=== PATIENT | female | born 1995 | race Two or more races ===

== ENCOUNTER 2021-04-09 13:37 | Emergency (ER) | payer MEDICAID ==
--- NOTE | 2021-04-09 14:44 | EDM.PDOC ---
ED HPI GENERAL MEDICAL PROBLEM - General Chief Complaint: Respiratory Problem Stated Complaint: FEVER,CONGESTED. Time Seen by Provider: 04/09/21 14:36 - History of Present Illness INITIAL COMMENTS - FREE TEXT/NARRATIVE: History of present illness: [] 26-year-old female presents with sinus congestion starting 06 April 2021. She does not have fever chills cough or wheezing. She does have a history of asthma. The patient has congestion and full sinuses with fullness in the front of her frontal and maxillary areas. She has chronic recurring sinus symptoms but markedly worse for 4 days. Review of systems: As per history of present illness and below otherwise all systems reviewed and negative. Past medical history: As per history of present illness and as reviewed below otherwise noncontributory. Surgical history: As per history of present illness and as reviewed below otherwise noncontributory. Social history: No reported history of drug or alcohol abuse. Family history: As per history of present illness and as reviewed below otherwise noncontributory. Physical exam: Constitutional - well developed, well-nourished and in no acute distress HEENT -somewhat tender with fullness in the frontal and maxillary areas. Normocephalic, no evidence of trauma - external nose and mouth normal - no mass in neck and no JVD - mucosae moist EYES - full EOM, PERRL, no icterus - no evidence of inflammation, injection, or drainage Respiratory - no respiratory distress, equal bilateral expansion, lungs clear to auscultation and no abnormal lung sounds Cardiovascular - Regular Rhythm with S1 and S2 appreciated and no murmur, gallop or rub. GI - abdomen soft without distension or organomegaly - no guard or rebound Musculoskeletal no gross deformity of long bones or joints - no tenderness, swelling or edema Neurologic - Alert and oriented times four - CN II-XII grossly intact - motor sensory and coordination symmetrically normal Psychiatric - appropriate mood and affect with normal thought content Hematologic - No petechiae or purpura - mucosa appropriate color and sclera not pale - normal nail bed color and refill Integument - no rash or evidence of trauma - normal turgor Diagnostics: [] Therapeutics: [] Impression: [] Plan: [] Definitive disposition and diagnosis as appropriate pending reevaluation and review of above. - Related Data Allergies Allergy/AdvReac Type Severity Reaction Status Date / Time No Known Allergies Allergy Verified 04/09/21 14:08 Home Meds: Home Meds Amoxicillin/Clavulanate K [Augmentin 875-125 MG] 1 tab PO BID #20 tablet 04/09/21 [Rx] Past Medical History HEENT History: Reports: None Cardiovascular History: Reports: None Respiratory History: Reports: Asthma Gastrointestinal History: Reports: None Neurological History: Reports: None Psychiatric History: Reports: None Endocrine/Metabolic History: Reports: None Hematologic History: Reports: None Oncologic (Cancer) History: Reports: None Dermatologic History: Reports: None - Past Surgical History HEENT Surgical History: Reports: None Respiratory Surgical History: Reports: None Social & Family History - Family History Family Medical History: No Pertinent Family History - Caffeine Use Caffeine Use: Reports: Coffee - Recreational Drug Use Recreational Drug Use: No ED ROS GENERAL - Review of Systems Review Of Systems: Comprehensive ROS is negative, except as noted in HPI. ED EXAM, GENERAL - Physical Exam Exam: See Below Free Text/Narrative:: My physical exam is in the HPI Course - Vital Signs Last Recorded V/S: Last Vital Signs Temp 36.3 C 04/09/21 14:10 Pulse 144 H 04/09/21 15:27 Resp 30 H 04/09/21 15:27 BP 121/60 04/09/21 14:10 Pulse Ox 100 04/09/21 15:27 - Orders/Labs/Meds Labs: Laboratory Tests 04/09/21 Range/Units 14:16 Influenza Type A RNA NEGATIVE (NEGATIVE) Influenza Type B RNA NEGATIVE (NEGATIVE) SARS-CoV-2 RNA ([facility]) NEGATIVE (NEGATIVE) Departure - Departure Time of Disposition: 15:33 Disposition: Home, Self-Care 01 Condition: Good Clinical Impression: Acute sinusitis - Discharge Information Prescriptions: Amoxicillin/Clavulanate K [Augmentin 875-125 MG] 1 tab PO BID #20 tablet Instructions: Sinusitis, Adult, [id number] Forms: ED Department Discharge Additional Instructions: Drink plenty of liquid. Increase humidity in the environment. Use a Lizzy pot or sinus wash. [facility] [address] [place] [address] [id number] [address] [id number] The following information is given to patients seen in the emergency department who are being discharged to home. This information is to outline your options for follow-up care. We provide all patients seen in our emergency department with a follow-up referral. The need for follow-up, as well as the timing and circumstances, are variable depending upon the specifics of your emergency department visit. If you don't have a primary care physician on staff, we will provide you with a referral. We always advise you to contact your personal physician following an emergency department visit to inform them of the circumstance of the visit and for follow-up with them and/or the need for any referrals to a consulting specialist. The emergency department will also refer you to a specialist when appropriate. This referral assures that you have the opportunity for follow-up care with a specialist. All of these measure are taken in an effort to provide you with optimal care, which includes your follow-up. Under all circumstances we always encourage you to contact your private physician who remains a resource for coordinating your care. When calling for follow-up care, please make the office aware that this follow-up is from your recent emergency room visit. If for any reason you are refused follow-up, please contact the [facility] Emergency Department at and asked to speak to the emergency department charge nurse. Sepsis Event Note (ED) - Evaluation Sepsis Screening Result: No Definite Risk - Focused Exam Vital Signs: Vital Signs Temp Pulse Resp BP Pulse Ox 04/09/21 15:27 144 H 30 H 100 04/09/21 14:10 36.3 C 84 19 121/60 100
[2021-04-09 14:58] LABS: CORONAVIRUS COVID-19 NAA NEGATIVE (NEGATIVE); INFLUENZA A NAA NEGATIVE (NEGATIVE); INFLUENZA B NAA NEGATIVE (NEGATIVE)
== END 2021-04-09 15:46 | disposition home or self-care (01) ==
LOC: MW.ED 13:37
DX: J01.90 Acute sinusitis, unspecified (principal); J45.909 Unspecified asthma, uncomplicated; Z20.822 Contact with and (suspected) exposure to COVID-19
CPT/HCPCS: 0240U; 99283

== ENCOUNTER 2022-03-07 09:51 | Emergency (ER) | payer MEDICAID ==
[2022-03-07 11:47] LABS: CARBON DIOXIDE,CO2 28.5 mmol/L (21.0-32.0); POTASSIUM,K 3.9 mmol/L (3.5-5.1)
== END 2022-03-07 12:05 | disposition home or self-care (01) ==
LOC: MW.ED 09:51
DX: R07.9 Chest pain, unspecified (principal); N39.0 Urinary tract infection, site not specified
CPT/HCPCS: 36415; 71045; 71045-26; 80053; 81001; 81025; 84443; 84484; 85025; 93005; 99285

== ENCOUNTER 2022-05-06 11:01 | Emergency (ER) | payer MEDICAID ==
[2022-05-06] MEDS ORDERED: Sodium Chloride 0.9% 2.5 ML Syringe FLUSH PRN (13:09)
[2022-05-06] MEDS ORDERED: Sodium Chloride 0.9% 20 ML SDV IV PRN (13:09)
[2022-05-06] MEDS ORDERED: Sodium Chloride 0.9% 10 ML Syringe FLUSH PRN (13:09)
[2022-05-06] MEDS ORDERED: Sodium Chloride 0.9% 1,000 ML IV ONE (13:09)
[2022-05-06] MEDS ORDERED: Caffeine Citrated (ORAL SOLUTION) 60 MG/3 ML PO ONE (13:45)
== END 2022-05-06 18:44 | disposition home or self-care (01) ==
LOC: MW.ED 11:01
DX: G97.1 Other reaction to spinal and lumbar puncture (principal); J45.909 Unspecified asthma, uncomplicated
CPT/HCPCS: 96360; 99283; J0706; J3490; J7030

== ENCOUNTER 2022-08-23 11:49 | Emergency (ER) | payer MEDICAID ==
[2022-08-23] MEDS ORDERED: Sodium Chloride 0.9% 1,000 ML IV ONE (13:57)
[2022-08-23] MEDS ORDERED: Acetaminophen 325 MG Tab PO ONE (13:57)
[2022-08-23] MEDS ORDERED: Ondansetron 4 MG/2 ML SDV IVPUSH ONE (13:57)
[2022-08-23 14:36] LABS: BASOPHILS PERCENT AUTO 0.1 % (0.0-1.5); EOSINOPHILS PERCENT AUTO 0.1 % (0.0-7.0); HEMATOCRIT 40.7 % (36.0-46.0); HEMOGLOBIN 14.1 g/dL (12.0-16.0); LYMPHOCYTES ABSOLUTE AUTO 0.2 K/uL (0.6-2.4); LYMPHOCYTES PERCENT AUTO 2.1 % (16.0-40.0); MEAN CORPUSCULAR HGB CONC 34.6 g/dL (31.0-37.0); MEAN CORPUSCULAR VOLUME 83.6 fL (80.0-98.0); MONOCYTES ABSOLUTE AUTO 0.3 K/uL (0.0-0.8); MONOCYTES PERCENT AUTO 2.8 % (0.0-15.0); NEUTROPHILS ABSOLUTE AUTO 10.1 K/uL (1.4-5.7); NEUTROPHILS PERCENT AUTO 94.9 % (48.0-80.0); NRBC ABSOLUTE 0 K/uL; PLATELET COUNT,PLT 259 K/uL (150-400); RED BLOOD CELL COUNT 4.87 M/uL (4.30-5.90); WHITE BLOOD CELL COUNT,WBC 10.66 K/uL (4.0-11.0)
[2022-08-23 14:59] LABS: A/G RATIO 0.8 (0.9-1.6); ALBUMIN 3.7 g/dL (3.4-5.0); BILIRUBIN TOTAL 0.8 mg/dL (0.2-1.0); CARBON DIOXIDE,CO2 22.5 mmol/L (21.0-32.0); EST CRCL DRUG DOSING (CG) 71.14 mL/min; POTASSIUM,K 3.7 mmol/L (3.5-5.1); PROTEIN TOTAL,TP 8.4 g/dL (6.4-8.2)
== END 2022-08-23 15:30 | disposition home or self-care (01) ==
LOC: MW.ED 11:49
DX: K52.9 Noninfective gastroenteritis and colitis, unspecified (principal); J45.909 Unspecified asthma, uncomplicated
CPT/HCPCS: 36415; 80053; 82150; 83690; 85025; 96361; 96374; 99284; A9270; J2405; J7030